=== PATIENT | male | born 1955 | race Caucasian/White ===

== ENCOUNTER 2018-03-06 13:00 | Day surgery (SDC) | payer OTHER ==
[2018-03-06] MEDS ORDERED: LIDOCAINE 1% 2 ML INJ ID PRN (13:09)
[2018-03-06] MEDS ORDERED: LR 1,000 ML IV ONE (13:09)
[2018-03-06] MEDS ORDERED: IOPAMIDOL (ISOVUE-M 300) 15 ML VIAL ONE (14:42)
[2018-03-06] MEDS ORDERED: LIDOCAINE 2% JELLY 20 ML (UROJECT) ONE (14:45)
[2018-03-06] MEDS ORDERED: MIDAZOLAM 2 MG/2 ML VIAL ONE (14:55)
[2018-03-06] MEDS ORDERED: fentaNYL 100 MCG/2 ML INJ ONE ×2 (15:01)
[2018-03-06] MEDS ORDERED: PROPOFOL 200 MG/20 ML VIAL ONE (15:01)
[2018-03-06] MEDS ORDERED: LIDOCAINE 2% 2 ML INJ ONE ×2 (15:04)
[2018-03-06] MEDS ORDERED: ONDANSETRON 4 MG/2 ML VIAL ONE (15:05)
[2018-03-06] MEDS ORDERED: DEXAMETHASONE 4 MG/ML VIAL ONE (15:05)
[2018-03-06] MEDS ORDERED: ceFAZolin 1 GM VIAL ONE ×2 (15:11)
[2018-03-06] MEDS ORDERED: CHLORHEXIDINE GLUC HIBICLENS 118 ML BTL TP ONE (15:15)
[2018-03-06] MEDS ORDERED: MIDAZOLAM 2 MG/2 ML VIAL IVP ONE (15:38)
[2018-03-06] MEDS ORDERED: ACETAMINOPHEN 500 MG TAB PO PRN (15:39)
[2018-03-06] MEDS ORDERED: fentaNYL 100 MCG/2 ML INJ IVP PRN (15:39)
[2018-03-06] MEDS ORDERED: PROMETHAZINE HCL 25 MG/ML INJ IVP PRN (15:39)
[2018-03-06] MEDS ORDERED: HYDROCODONE/APAP 5/325 TAB PO PRN (15:39)
[2018-03-06] MEDS ORDERED: NALOXONE HCL 0.4 MG/ML INJ IVP PRN (15:39)
[2018-03-06] MEDS ORDERED: LR 500 ML IV PRN (15:39)
[2018-03-06] MEDS ORDERED: ALBUTEROL 3 ML DEYVIAL IH PRN (15:39)
[2018-03-06] MEDS ORDERED: ONDANSETRON 4 MG/2 ML VIAL IVP PRN (15:39)
[2018-03-06] MEDS ORDERED: METOCLOPRAMIDE 10 MG/2 ML VIAL IVP PRN (15:39)
[2018-03-06] MEDS ORDERED: HYDROmorphONE/DILAUDID 2 MG/ML INJ IVP PRN (15:39)
[2018-03-06] MEDS ORDERED: oxyCODONE IR 5 MG TAB PO PRN (15:39)
--- NOTE | 2018-03-06 15:39 | PDANEPAE ---
ANE History of Present Illness left ureteral stone ANE Past Medical History - Cardiovascular History Hx Hypertension: Yes Hx Arrhythmias: No Hx Chest Pain: No Hx Coronary Artery / Peripheral Vascular Disease: No Hx CHF / Valvular Disease: No Hx Palpitations: No Cardiovascular History Comment: HEART MURMUR - Pulmonary History Hx COPD: No Hx Asthma/Reactive Airway Disease: No Hx Recent Upper Respiratory Infection: No Hx Oxygen in Use at Home: No Hx Sleep Apnea: Yes Sleep Apnea Screening Result - Last Documented: Positive Pulmonary History Comment: MILD KLEVER NO DEVICES RECOMMENDED TO BE USED - Neurologic History Hx Cerebrovascular Accident: No Hx Seizures: No Hx Dementia: No - Endocrine History Hx Diabetes: Yes Hypothyroid: No Hyperthyroid: No Obesity: no Endocrine History Comment: NIDDM - Renal History Hx Renal Disorders: Yes Renal History Comment: KIDNEY STONE - Liver History Hx Hepatic Disorders: No - Neurological & Psychiatric Hx Hx Neurological and Psychiatric Disorders: No - Cancer History Hx Cancer: Yes Cancer History Comment: SKIN - Congenital Disorder History Hx Congenital Disorders: No - GI History Hx Gastrointestinal Disorders: No - Other Health History Other Health History: HEMOCHROMATOSIS - Chronic Pain History Chronic Pain: No - Surgical History Prior Surgeries: RT KNEE SCOPE. RT SHLDR SCOPE. SEPTOPLASTY. LT ARM ORIF. UVULECTOMY ANE Review of Systems Review of Systems: - Exercise capacity METS (RN): 4 METS ANE Patient History - Allergies Allergies/Adverse Reactions: No Known Allergies Allergy (Unverified 03/05/18 17:43) - Home Medications Home medications: home medication list seen and reviewed Home Medications: Crestor HS 03/05/18 [Last Taken 03/05/18 21:00] Jardiance DAILY 03/05/18 [Last Taken 03/05/18 09:00] Lisinopril DAILY 03/05/18 [Last Taken 03/05/18 09:00] Metformin HCl BID 03/05/18 [Last Taken 03/01/18] Valtrex DAILY 03/05/18 [Last Taken 03/05/18 21:00] Zetia DAILY 03/05/18 [Last Taken 03/05/18 09:00] - NPO status NPO Since - Liquids (Date): 03/06/18 NPO Since - Liquids (Time): 11:00 NPO Since - Solids (Date): 03/05/18 NPO Since - Solids (Time): 20:00 - Anes Hx Anes Hx: no prior problems - Smoking Hx Smoking Status: Never smoked ANE Labs/Vital Signs - Vital Signs Blood Pressure: 130/91 Heart Rate: 86 Respiratory Rate: 17 O2 Sat (%): 95 Height: 175.26 cm Weight: 74.843 kg ANE Physical Exam - Airway Neck exam: FROM Mallampati Score: Class 1 Mouth exam: normal dental/mouth exam - Pulmonary Pulmonary: no respiratory distress - Cardiovascular Cardiovascular: regular rate and rhythym - ASA Status ASA Status: II ANE Anesthesia Plan Anesthesia Plan: GA w LMA Urgent/Emergent Case: Anecosme pate completed preop but documented later for safe timely pt care
--- NOTE | 2018-03-06 15:39 | POSTANESTH ---
Post Anesthetic Evaluation Cardiovascular Status: Normal, Stable Respiratory Status: Normal, Stable Level of Consciousness/Mental Status: Can Participate in Eval, Alert and Oriented Pain Control: Adequate, Prn Tx Ordered Nausea/Vomiting Control: Adequate, Prn Tx Ordered Complications Possibly Related to Anesthesia: None Noted
--- NOTE | 2018-03-06 16:01 | POSTOPPROG ---
Post Op Note Date of Operation: 03/06/18 Surgeon: Mejia Cifuentes Anesthesia: LMA Pre-op Diagnosis: stone Post-op Diagnosis: stone Procedure: URS, laser , stent Findings: [id number] Inf/Abcess present in the surg proc area at time of surgery?: No
--- NOTE | 2018-03-06 16:33 | GOP ---
DATE OF OPERATION: 03/06/2018 SURGEON: Akua Cifuentes MD ANESTHESIA: General. PREOPERATIVE DIAGNOSIS: Left distal ureteral calculus, large. POSTOPERATIVE DIAGNOSIS: 1. Left distal ureteral calculus, large. 2. Proximal bulbar urethral stricture. PROCEDURE PERFORMED: Cystoscopy, left ureteroscopy, laser fragmentation of stone, basket extraction of fragment, left ureteral stent insertion and dilation of urethral stricture. FINDINGS: ESTIMATED BLOOD LOSS: Minimal. DESCRIPTION OF PROCEDURE: Patient was taken to the operating room. General anesthesia was induced. Patient was placed in a dorsal lithotomy position, prepped and draped in a sterile fashion. The 22- Mongolian cystoscope with a 30-degree lens was inserted through the patient's urethra into the patient's bladder. Of note was a bulbar urethral stricture. A wire was used to cannulate the stricture and g uide it into the bladder and then the scope was used to go over the wire and stretch open the strictu re into the bladder. Bladder was drained. There were no obvious urothelial defects, masses, or ston es. Left ureteral orifice was cannulated with a Sensor wire which was guided up into the left renal pelvis by fluoroscopy. The inner trocar over an access sheath was used to gently dilate the left ure ter. Removed the dilator and inserted the ureteroscope alongside the wire up to the level of the stone whi ch was then fragmented into multiple small pieces. The larger fragment was basketed and extracted fo r stone analysis. The scope was withdrawn. The wire was backloaded onto the cystoscope, and a 6-Mongolian stent was place d in the left renal pelvis by fluoroscopy and seen to curl in the bladder by direct vision. The rell ent's bladder was drained. He was returned to the supine position, extubated, placed on a stretcher, and taken to the recovery room in stable condition. COMPLICATIONS: None. DRAINS: Left-sided 6-Mongolian variable length stent. /[id number]/MODL
[2018-03-06 17:12] VITALS: BP 126/93
== END 2018-03-06 17:29 | disposition home or self-care (01) ==
LOC: FSGY 13:00
PROVIDERS: ATTEND Specialist
PROC: 0T778DZ Dilation of Left Ureter with Intraluminal Device, Via Natural or Artificial Opening Endoscopic (ICD-10-PCS; principal; 2018-03-06 15:00)
PROC: 0TC78ZZ Extirpation of Matter from Left Ureter, Via Natural or Artificial Opening Endoscopic (ICD-10-PCS; principal; 2018-03-06 15:00)
PROC: 0TF78ZZ Fragmentation in Left Ureter, Via Natural or Artificial Opening Endoscopic (ICD-10-PCS; principal; 2018-03-06 15:00)
PROC: BT1FYZZ Fluoroscopy of Left Kidney, Ureter and Bladder using Other Contrast (ICD-10-PCS; principal; 2018-03-06 15:00)
DX: N20.1 Calculus of ureter (principal); N35.812 Other bulbous urethral stricture, male; R35.0 Frequency of micturition; M79.604 Pain in right leg; R01.1 Cardiac murmur, unspecified; E11.29 Type 2 diabetes mellitus with other diabetic kidney complication; G47.33 Obstructive sleep apnea (adult) (pediatric); N52.9 Male erectile dysfunction, unspecified; Z79.82 Long term (current) use of aspirin; Z82.49 Family history of ischemic heart disease and other diseases of the circulatory system; Z80.42 Family history of malignant neoplasm of prostate
CPT/HCPCS: 82365-90; C1758; C1894; C2625; J0690; J1100; J2250; J2405; J2704; J3010; Q9967